=== PATIENT | female | born 1955 | race Caucasian/White ===

== ENCOUNTER 2022-11-16 10:42 | Emergency (ER) | payer MEDICARE, OTHER ==
--- NOTE | 2022-11-16 11:32 | ED Integumentary General ---
General Chief Complaint: Skin/Wound Problems Stated Complaint: LT ELBOW INFECTION Nursing Triage Note: PT AMB TO FT 1 WITH CC OF WOUND TO L ELBOW. PT STATES WAS SEEN ON 11/11 AT [facility] AFTER BEING CUT BY NAIL. PT STATES WAS GIVEN TOPICAL ANTIBIOTIC AND TDAP. PT REPORTS [facility] PX ORAL ANTIBIOTIC BUT HAS HAS INCREAE WEAKNESS AND SWELLING. Source: patient Exam Limitations: no limitations (IVON THAKKAR) History of Present Illness Date Seen by Provider: Nov 16, 2022 Time Seen by Provider: 11:28 Initial Comments Patient is a 67-year-old female who presents to the ED with a wound to her left elbow. She states on November 11 she was seen at [facility] after she was punctured with a prashanth nail. Patient states she developed swelling and redness to her left arm. She was seen at the clinic placed on topical antibiotic initially. Patient states the next day she was placed on doxycycline. She has 2 days worth. She states redness and swelling has improved but noted some purulent drainage from the left lateral elbow. She reports normal range of motion of the left elbow. She denies of any chest pain or shortness of breath, fever, chills, bodyaches. Normal active range of motion left arm. (IVON THAKKAR) Allergies and Home Medications Allergies Coded Allergies: Penicillins (Verified Allergy, Severe, 11/16/22) fentanyl (Verified Allergy, Severe, 11/16/22) Iodinated Contrast Media (Verified Allergy, Unknown, 11/16/22) Sulfa (Sulfonamide Antibiotics) (Verified Allergy, Unknown, 11/16/22) aspirin (Unverified Allergy, Unknown, 11/16/22) bismuth subsalicylate (Verified Allergy, Unknown, 11/16/22) dicyclomine (Verified Allergy, Unknown, 11/16/22) formoterol (Verified Allergy, Unknown, 11/16/22) levofloxacin (Verified Allergy, Unknown, 11/16/22) methylphenidate (Verified Allergy, Unknown, 11/16/22) mometasone furoate (Verified Allergy, Unknown, 11/16/22) morphine (Verified Allergy, Unknown, 11/16/22) promethazine (Verified Allergy, Unknown, 11/16/22) shellfish derived (Verified Allergy, Unknown, 11/16/22) tramadol (Verified Allergy, Unknown, 11/16/22) triamcinolone (Verified Allergy, Unknown, 11/16/22) Uncoded Allergies: FLU SHOT (Allergy, Unknown, 11/16/22) Patient Home Medication List Home Medication List Reviewed: Yes (IVON THAKKAR) Review of Systems Review of Systems Constitutional: No chills, No diaphoresis, No fever, No malaise, No weakness EENTM: No hearing loss, No ear pain, No blurred vision Respiratory: No cough, No dyspnea on exertion Cardiovascular: No chest pain Gastrointestinal: No abdominal pain, No diarrhea, No nausea, No vomiting Genitourinary: No decreased output Musculoskeletal: No back pain, No joint pain; muscle pain Skin: change in color (IVON THAKKAR) All Other Systems Reviewed Negative Unless Noted: Yes (IVON THAKKAR) Past Jghntqs-Qyvrui-Mjemng Hx Patient Social History Tobacco Use?: No Substance use?: No Alcohol Use?: No Pt feels they are or have been: No (IVON THAKKAR) Immunizations Up To Date Influenza Vaccine Up-to-Date: No; Not Current (IVON THAKKAR) Past Medical History Surgery/Hospitalization HX: FIBROMYALGIA, SPINAL LEMECHTOMY, HEART ATTACK, HERPES 2, ASTHMA, (IVON THAKKAR) Physical Exam Vital Signs Vital Signs - First Documented 11/16/22 11:09 Temp 36.9 Pulse 95 Resp 18 B/P (MAP) 134/77 (96) Pulse Ox 97 O2 Delivery Room Air (MAXIMUS ZAVALA MD) Vital Signs Capillary Refill : Less Than 3 Seconds (IVON THAKKAR) General Appearance: WD/WN, no apparent distress HEENT: PERRL/EOMI, normal ENT inspection, TMs normal, pharynx normal Neck: non-tender, full range of motion, supple, normal inspection Cardiovascular: regular rate, rhythm, no edema, no gallop, no JVD Respiratory: chest non-tender, lungs clear, normal breath sounds, no respiratory distress, no accessory muscle use Gastrointestinal: normal bowel sounds, non tender, soft Back: normal inspection, no CVA tenderness, no vertebral tenderness Extremities: normal range of motion, non-tender, normal inspection, no pedal edema, inflammation (Localized inflammation of left lateral elbow. No necrotic tissue. Normal active range of motion flexion extension. Neurovascular intact. 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 No active purulent drainage. No fluctuant mass. Localized erythema. Normal active range of motion of the left elbow. Neurovascular intact.) (IVON THAKKAR) Procedures/Interventions I&D : Blade Size: 11 I & D Procedure: betadine prep Progress Prepped with alcohol. 3 mls of lidocaine 1% was used to anesthetize. Incision and drainage to the left lateral elbow. Very small amount of purulent and bloody drainage. Area was left open. Patient tolerated procedure well. (IVON THAKKAR) Progress/Results/Core Measures Results/Orders Vital Signs/I&O 11/16/22 11/16/22 11:09 12:05 Temp 36.9 Pulse 95 95 Resp 18 18 B/P (MAP) 134/77 (96) 134/77 Pulse Ox 97 97 O2 Delivery Room Air Room Air (MAXIMUS ZAVALA MD) Blood Pressure Mean: 96 Departure Communication (PCP) Patient presents ED for cellulitis and drainage of a wound to her left lateral elbow. November 11 she was stuck by a prashanth nail off a door. She received her tetanus shot at [facility]. Initially was placed on mupirocin and then started on doxycycline. She had redness and swelling the left arm that has improved. She is concern for some purulent drainage from the left lateral elbow. On exam no strong evidence of fluctuant mass. Did make a small incision overlying the wound to allow drainage. Very small purulent and bloody drainage. The area was left open. Extensive irrigation 1 with sure cleans and normal saline. No evidence of septic joint. She does not appear toxic. She does have 2 days worth of doxycycline which I recommended. Provided wound care outpatient follow-up. If increased redness or swelling to return back to ED. Recommend recheck of the wound with your primary or wound care in the next 1 to 2 days. Patient agrees with plan of action. (IVON THAKKAR) Impression Primary Impression: Wound cellulitis Disposition: 01 HOME, SELF-CARE Condition: Stable Departure-Patient Inst. Decision time for Depature: 11:59 (IVON THAKKAR) Referrals: [facility],LOCAL PHYSICIAN (PCP) Primary Care Physician Patient Instructions: Cellulitis (Skin Infection), Adult (DC) Add. Discharge Instructions: Recommend following up with [facility] in 1 to 2 days for reevaluation. Finish your doxycycline. Recommend following up with wound care at [phone] All discharge instructions reviewed with patient and/or family. Voiced understanding. ATTENDING PHYSICIAN NOTE: I was physically present as attending physician in the emergency department during the care of this patient, but I was not directly involved in the decision making or delivery of care for this patient. (MAXIMUS ZAVALA MD) IVON THAKKAR Nov 16, 2022 11:32 MAXIMUS ZAVALA MD Nov 16, 2022 20:48
[2022-11-16 12:05] VITALS: BP 134/77
== END 2022-11-16 12:05 | disposition home or self-care (01) ==
LOC: ER 10:47
DX: L03.114 Cellulitis of left upper limb (principal); Z88.0 Allergy status to penicillin; Z88.2 Allergy status to sulfonamides; Z28.310 Unvaccinated for COVID-19

== ENCOUNTER → 2022-11-18 | Outpatient (CLI) | payer MEDICARE, OTHER | LOC: WOUNDCARE 12:16 | PROVIDERS: ATTEND Family Medicine | DX: S41.112A Laceration without foreign body of left upper arm, initial encounter (principal); L03.114 Cellulitis of left upper limb; L23.1 Allergic contact dermatitis due to adhesives; R60.0 Localized edema | CPT/HCPCS: 11042; A6197; A6212; G0463 ==